=== PATIENT | female | born 1950 | race Caucasian/White ===

== ENCOUNTER 2018-01-02 13:50 | Outpatient (CLI) | payer MEDICARE ==
--- NOTE | 2018-01-05 11:01 | MMO ---
BILATERAL DIGITAL SCREENING MAMMOGRAMS: HISTORY: This 67-year-old female presents for digital screening mammography. COMPARISON: 03/26/09. This patient's mammogram is interpreted with the assistance of computer-aided detection. FINDINGS: Scattered fibroglandular densities are noted bilaterally. Stable approximately 0.6 cm diameter nodul ar area in the upper outer left breast posteriorly which needs additional imaging evaluation. The ri ght breast is stable. IMPRESSION: BI-RADS category 0, assessment is incomplete. Needs additional imaging evaluation. Followup left un ilateral diagnostic mammogram to include focal spots in CC and MLO and 90-degree ML views as well as left breast ultrasound if needed for further assessment. BIRADS 0: Incomplete: Need Additional Imaging Evaluation and/or Prior Mammograms for Comparison POS: JULIEN
== END 2018-01-02 13:51 | disposition home or self-care (01) ==
LOC: SCSMAMMO 13:50
PROVIDERS: ATTEND Family Medicine
DX: Z12.31 Encounter for screening mammogram for malignant neoplasm of breast (principal)
CPT/HCPCS: 77067

== ENCOUNTER 2018-01-11 12:46 | Outpatient (CLI) | payer MEDICARE | END 2018-01-11 12:47 | disposition home or self-care (01) | LOC: BICMAMMO 12:46 | PROVIDERS: ATTEND Family Medicine | DX: R92.2 Inconclusive mammogram (principal) | CPT/HCPCS: 76642; 77065; G0279 ==

== ENCOUNTER → 2018-01-24 | Day surgery (SDC) | payer MEDICARE | LOC: BICULT 12:49 | PROVIDERS: ATTEND Family Medicine | PROC: 0HBU3ZX Excision of Left Breast, Percutaneous Approach, Diagnostic (ICD-10-PCS; principal; 2018-01-24) | DX: C50.412 Malignant neoplasm of upper-outer quadrant of left female breast (principal); Z17.0 Estrogen receptor positive status [ER+] | CPT/HCPCS: 19100; 76942; 88305; 88341; 88342; 88360 ==

== ENCOUNTER 2019-05-23 12:53 | Outpatient (CLI) | payer MEDICARE ==
--- NOTE | 2019-05-23 13:47 | MMO ---
Bilateral MAMMO Bilat Diag [facility]. CLINICAL HISTORY: Patient is 68 years old and is seen for diagnostic exam. The patient has no family history of breast cancer. The patient has a history of malignant (generic) in the left breast in 2018. The patient has a history of left Lumpectomy in 2018 - malignant. VIEWS: The views performed were: bilateral craniocaudal with tomosynthesis; bilateral mediolateral oblique with tomosynthesis; bilateral mediolateral with tomosynthesis; and left exaggerated craniocaudal. FILMS COMPARED: The present examination has been compared to prior imaging studies performed at [facility] on 01/02/2018, and at [facility] on 01/11/2018. This study has been interpreted with the assistance of computer-aided detection. MAMMOGRAM FINDINGS: There are scattered fibroglandular densities. There is a post-surgical scar seen in the upper-outer region of the left breast. There are no suspicious masses, suspicious calcifications, or new areas of architectural distortion. IMPRESSION: THERE IS NO MAMMOGRAPHIC EVIDENCE OF MALIGNANCY. A ROUTINE FOLLOW-UP MAMMOGRAM IN 1 YEAR IS RECOMMENDED. THE RESULTS OF THIS EXAM WERE SENT TO THE PATIENT. ACR BI-RADS Category 2 - Benign finding MAMMOGRAPHY NOTE: 1. A negative mammogram report should not delay a biopsy if a dominant of clinically suspicious mass is present. 2. Approximately 10% to 15% of breast cancers are not detected by mammography. 3. Adenosis and dense breasts may obscure an underlying neoplasm. Reported by: STANLEY ARENAS MD Electonically Signed: [id number]
== END 2019-05-23 12:54 | disposition home or self-care (01) ==
LOC: BICMAMMO 12:53
PROVIDERS: ATTEND Internal Medicine Hematology & Oncology
DX: Z08 Encounter for follow-up examination after completed treatment for malignant neoplasm (principal); M81.0 Age-related osteoporosis without current pathological fracture; Z85.3 Personal history of malignant neoplasm of breast
CPT/HCPCS: 77066; G0279